=== PATIENT | male | born 1975 | race Two or more races ===

== ENCOUNTER 2023-07-09 16:44 | Emergency (ER) | payer OTHER, BC ==
[~2023-07-09] VITALS: Ht 172.7 cm; Wt 104.3 kg
[2023-07-09 16:50] VITALS: BP 114/75; PULSE 76; RESP 16; TEMP 97.2; O2SAT 99
[2023-07-09 17:59] LABS: BASOPHILS % (AUTO) 0.1 % (0.0-2.0); EOSINOPHILS % (AUTO) 0.2 % (0.0-4.0); HEMATOCRIT 43.7 % (36-52); HEMOGLOBIN 14.9 g/dL (12.0-18.0); LYMPHOCYTES # (AUTO) 1.2 K/uL (2.0-11.5); LYMPHOCYTES % (AUTO) 11.6 % (20.5-51.1); MEAN CORPUSCULAR HEMOGLOBIN 27 pg (27-31); MEAN CORPUSCULAR HGB CONC 34 g/dL (33-37); MEAN CORPUSCULAR VOLUME 79.8 fL (80-94); MONOCYTES # (AUTO) 0.6 K/uL (0.8-1.0); MONOCYTES % (AUTO) 5.7 % (1.7-9.3); NEUTROPHILS # (AUTO) 8.2 K/uL (1.8-7.7); NEUTROPHILS % (AUTO) 82.4 % (42.2-75.2); PLATELET COUNT (AUTO) 207 K/uL (140-450); RED BLOOD CELL COUNT(AUTO) 5.48 MIL/uL (4.20-6.10); RED CELL DISTRIBUTION WIDTH 14.5 % (11.6-13.7)
[2023-07-09] MEDS ORDERED: FAMOTIDINE 20 MG TAB PO ONE (18:05)
[2023-07-09] MEDS ORDERED: ACETAMINOPHEN EXTRA STRENGTH 500 MG TAB PO ONE (18:05)
[2023-07-09 18:15] LABS: ALBUMIN 3.7 g/dL (3.4-5.0); ANION GAP 11.2 (8-16); CALCIUM 8.8 mg/dL (8.5-10.1); CARBON DIOXIDE 29.4 mmol/L (21-32); POTASSIUM 3.6 mmol/L (3.5-5.1); TOTAL BILIRUBIN 0.6 mg/dL (0.0-1.0)
[2023-07-09] MEDS ORDERED: MECLIZINE 25 MG TAB PO ONE (18:45)
[2023-07-09] MEDS ORDERED: OMEP20EC11 PO (19:28)
[2023-07-09] MEDS ORDERED: MECL-303 PO (19:28)
[2023-07-09] MEDS ORDERED: ONDA-188 SL (19:28)
[2023-07-09] MEDS ORDERED: KETOROLAC 30 MG/ML VIAL IM ONE (19:50)
[2023-07-09 20:30] VITALS: BP 113/75; PULSE 81; RESP 18; O2SAT 96
== END 2023-07-09 20:30 | disposition home or self-care (01) ==
LOC: MED 16:44
DX: H92.02 Otalgia, left ear (principal); R42 Dizziness and giddiness; K29.70 Gastritis, unspecified, without bleeding; R06.02 Shortness of breath; J02.9 Acute pharyngitis, unspecified; K21.9 Gastro-esophageal reflux disease without esophagitis; Z98.890 Other specified postprocedural states; Z79.899 Other long term (current) drug therapy
CPT/HCPCS: 36415; 71046; 80053; 81002; 83690; 85025; 96372; 99284; J1885; J8597